=== PATIENT | male | born 1955 | race Caucasian/White ===

== ENCOUNTER → 2016-02-17 | Day surgery (SDC) | payer BC ==
--- NOTE | 2016-02-07 10:45 | HP ---
ADMISSION HISTORY AND PHYSICAL: DATE OF ADMISSION: 02/17/16 ATTENDING SURGEON: Laron Lazo MD (dictated by BRENDA Loredo) CHIEF COMPLAINT: Right inguinal hernia. HISTORY OF PRESENT ILLNESS: This is a generally healthy 60-year-old male with known right groin bulge for a number of years, which until recently had been asymptomatic. Over the last 6 months or so, the patient has noted periodic discomfort in the right groin particularly after a long day of standing and activity. He has not had any severe pain or anything to suggest incarceration or strangulation. He denies any change in GI or functions. He was seen in the office by Dr. Lazo on 01/12/16 at which time exam confirmed the presence of a reducible right groin bulge consistent with right inguinal hernia. No hernia was noted on the left. Dr. Lazo discussed with him the indications, risks, benefits, and alternatives of surgery and he understands the expected perioperative course and he would like to proceed as scheduled with laparoscopic repair of right inguinal hernia with mesh. PAST MEDICAL HISTORY: Some seasonal allergies, no other chronic or active medical problems. PAST SURGICAL HISTORY: Laparoscopic cholecystectomy with umbilical hernia repair, open appendectomy remotely. No surgical or anesthesia complications. CURRENT MEDICATIONS: 1. Nasonex 2 sprays each nostril once daily. 2. Loratadine 10 mg once daily p.r.n. 3. Glucosamine chondroitin supplement daily. 4. Multivitamin daily. DRUG ALLERGIES: None known. FAMILY HISTORY: Negative for anesthesia problems, bleeding, or clotting disorders. SOCIAL HISTORY: The patient is . He works at the [email or web address] in [place] and does a fair amount of bending and lifting. He denies use of tobacco. He drinks a couple of beers per week. He denies other drug use. REVIEW OF SYSTEMS: General: No recent constitutional symptoms or acute illnesses. His weight has been stable. HEENT: No problems reported. Cardiovascular: No chest pain, palpitations, history of hypertension, or heart murmur. Respiratory: No history of asthma or chronic cough. No shortness of breath. GI: No problems reported. Colonoscopy done within the past year reportedly normal. : No problems reported. Endocrine: No diabetes or thyroid dysfunction. PHYSICAL EXAMINATION GENERAL: Well-nourished, well-developed male, in no acute distress. VITAL SIGNS: Height 5 feet 11 inches, weight 192 pounds. Other vital signs per nursing. HEENT: Pupils equal and round, reactive. EOMs intact. No conjunctival pallor. Oropharynx: Teeth in good repair. No intraoral lesions. NECK: No lymphadenopathy, thyromegaly, or masses. LUNGS: Clear to auscultation. No wheezes. HEART: Regular rate and rhythm. No murmur noted. ABDOMEN: Soft, nontender to palpation. No palpable masses or organomegaly aside from the right inguinal hernia as noted by Dr. Lazo's exam. EXTREMITIES: No edema. GENITALIA AND RECTAL: Not done. BACK: No spinous process or CVA tenderness. NEUROLOGIC: Grossly intact. SKIN: Warm and dry. No suspicious rashes or lesions noted. IMPRESSION: Right inguinal hernia. PLAN: Laparoscopic repair, right inguinal hernia with mesh. BRENDA GUTIERREZ CC: Cain Ramesh MD * [id number]/[facility] #: [id number] MTDD
[~2016-02-17] MED LIST: Acetaminophen TAB* 325 MG PO PRN; Buffered Lidocaine 1% SYR 3ML* 3 ML/SYR SYRINGE INTRADERM ONE; Buffered Lidocaine 1% SYR 3ML* 3 ML/SYR SYRINGE ONE; Bupivacaine 0.25% EPI 200,000* 30 ML SDV ONE; Desflurane* 240 ML INH ONE; DiMENhydriNATE IV* 50 MG/ML VIAL IV PUSH PRN; DiMENhydriNATE IV* 50 MG/ML VIAL ONE; Famotidine IV* 10 MG/ML 2 ML (20 mg) ONE; HYDROmorphone INJ* 1 MG/ML CARPUJECT SYRINGE IV PRN; Midazolam* 1 MG/ML 2 ML VIAL (2 MG) ONE; Ondansetron INJ* 2 MG/ML VIAL IV PRN; PROCHLORPERAZINE INJ 5 MG/ML 2 ML VIAL IV PRN; Rocuronium* 10 MG/ML VIAL ONE; Sevoflurane* 1 BTL ONE; ceFAZolin 2 GM PREMIX (*) 2 GM/50 ML BAG IVPB ONE; fentaNYL* 50 MCG/ML 2 ML VIAL (100 MCG VIAL) ONE
[2016-02-17 14:02] VITALS: BP 119/53
--- NOTE | 2016-02-17 23:58 | OP ---
DATE OF OPERATION: 02/17/16 [facility] DATE OF : 53 SURGEON: Laron Lazo MD MEDIA STRATEGIST: Claudia Rivera NP ANESTHESIOLOGIST: Dr. Galan. ANESTHESIA: General anesthetic, local infiltration. PRE-OP DIAGNOSIS: Right inguinal hernia. POST-OP DIAGNOSIS: Right inguinal hernia. OPERATIVE PROCEDURE: Laparoscopic repair of right inguinal hernia with mesh. DESCRIPTION OF PROCEDURE: The patient was supine on the operative table. After adequate general anesthesia, compression stockings, and Jonh Hugger warmer ; the abdomen was prepped with antiseptic; and draped in a sterile fashion. Local infiltrative anesthesia was administered. A small infraumbilical incision was created and the balloon insufflator was utilized in the preperitoneal space to develop the right inguinal preperitoneal plane. Camera was inserted and additional cannulae 5 mm infraumbilical and left lower quadrant were placed through small stab wounds under direct vision and additional dissection of the peritoneum off of the pelvic tissues was accomplished. There was a medium-sized direct space hernia, which was easily dissected free. There was a sac at the internal ring that did not actually protrude through a defect in the ring, but extended up along the cord structures to the ring. This was dissected back as well. A rent in the peritoneum was noted, but there was no harm noted. A right-sided 3-dimensional medium mesh was utilized and oriented in the usual fashion. Dissolvable clips were used to secure it near the tubercle, Gus ligament, and laterally as well and 1 anterior to the direct space hernia. This created excellent coverage. Everything was in good condition. The cannula removed. Insufflation was allowed to escape. The umbilical fascia was closed with 0 Polysorb followed by 5-0 Polysorb for the skin in all cases followed by Steri- Strips. He tolerated the procedure well, was awakened, and brought to recovery in good condition. No complications. No drains. No pathologic specimen. Sponge and instruments correct. Estimated blood loss is 10 mL. CC: Laron Lazo MD; Cain Ramesh MD * [id number]/[facility] #: [id number] MTDD
== END | disposition home or self-care (01) ==
LOC: OR 07:48
PROVIDERS: ATTEND Surgery
DX: K40.90 Unilateral inguinal hernia, without obstruction or gangrene, not specified as recurrent (principal)
CPT/HCPCS: A9270-GY; C1776; C1781; J0690; J1240; J2250; J3010

== ENCOUNTER → 2018-11-01 | Day surgery (SDC) | payer BC ==
--- NOTE | 2018-10-25 12:24 | HP ---
AMENDED REPORT NOW INCLUDES DESIGNATED COSIGNER PREOPERATIVE HISTORY AND PHYSICAL: DATE OF ADMISSION: 11/01/18. DATE OF OFFICE VISIT: 10/23/18 DATE OF SCHEDULED SURGERY: 11/01/18 ATTENDING PHYSICIAN: Dr. Walker * (DICTATED BY BRENDA DURAN) CHIEF COMPLAINT: Right knee pain. HISTORY OF PRESENT ILLNESS: The patient is a 63-year-old male who has had intermittent knee pain over the last 4 years, but over the last 2 months severe medial joint line pain. He had been limping significantly and had difficulty walking and climbing on stairs. He was seen on 10/09/18 and underwent MRI of the right knee, which has shown a large medial meniscal tear. The patient has been offered knee arthroscopy and he elects to proceed with surgery, scheduled with Dr. Walker for 11/01/18. PAST MEDICAL HISTORY: Negative for any chronic conditions. PAST SURGICAL HISTORY: He has had cholecystectomy, appendectomy, and hernia repair. CURRENT MEDICATIONS: 1. Multivitamin 2. Glucosamine/chondroitin sulfate. 3. Nasonex for seasonal allergies. ALLERGIES: No known drug allergies. Seasonal allergies only. FAMILY HISTORY: His dad had a history of hypertension. SOCIAL HISTORY: Lives with his . He works part-time at the [employer]. He does not use tobacco or recreational drugs. He drinks roughly 2 alcoholic beverages per week. REVIEW OF SYSTEMS: The patient denies recent loss of consciousness, lightheadedness, dizziness. Denies shortness of breath, chest pain, palpitations. Denies gastrointestinal or genitourinary discomfort. He does have some seasonal allergies. PHYSICAL EXAMINATION GENERAL: He is alert and oriented x3, in no acute distress. Pleasant and cooperative. VITAL SIGNS: Height 71 inches, weight 194, pulse 64, BP 134/82, respirations 18. HEENT: PERRLA. NECK: Supple. LUNGS: Clear to auscultation without wheeze. HEART: Regular rate and rhythm. No murmur auscultated. ABDOMEN: Nontender. Normoactive bowel sounds x4. MUSCULOSKELETAL: Right knee reveals no open wounds or excoriations. There is a moderate effusion. He has 10 degrees to 120 degrees flexion of the knee. There is no varus or valgus instability. He has positive Apley's and Angelina. There is tenderness along the medial joint line. He has 5/5 ankle dorsiflexion and plantar flexion strength. He has full sensation and circulation distally. LAB DATA: Studies of the right knee reveal some osteoarthritis in all 3 compartments. His MRI has revealed a large medial meniscal tear. IMPRESSION: Medial meniscus tear, degenerative arthritis, right knee. PLAN: The patient has elected to proceed with right knee arthroscopy, which is scheduled with Dr. Walker 11/01/18. Risks and benefits of the procedure were fully discussed with patient at this office visit by Dr. Walker today. He will follow up in roughly 10 to 14 days postoperatively. BRENDA DURAN [id number]/[facility] #: [id number] ADAM
[~2018-11-01] MED LIST changes: -Acetaminophen TAB* 325 MG PO PRN; -Buffered Lidocaine 1% SYR 3ML* 3 ML/SYR SYRINGE INTRADERM ONE; -Buffered Lidocaine 1% SYR 3ML* 3 ML/SYR SYRINGE ONE; +Buffered Lidocaine 1% SYRIN* 1 ML/SYRINGE INTRADERM ONE; -Bupivacaine 0.25% EPI 200,000* 30 ML SDV ONE; +Bupivacaine 0.5%* 50 ML MDV VIAL ONE; -Desflurane* 240 ML INH ONE; +Dexamethasone TAB* 4 MG ONE; +Dexamethasone TAB* 4 MG PO ONE; -DiMENhydriNATE IV* 50 MG/ML VIAL ONE; +EPHEDrine (Pressors)* 50 MG/ML VIAL ONE; +EPINEPHRINE 1 MG/ML 1 ML VIAL ONE; +Famotidine IV* 10 MG/ML 2 ML (20 mg) IV ONE; -HYDROmorphone INJ* 1 MG/ML CARPUJECT SYRINGE IV PRN; +HYDROmorphone INJ1* 1 MG/ML SYRINGE IV PRN; +KETAMINE HCL* 50 MG/ML 10 ML VIAL ONE; +Ketorolac INJ* 30 MG/ML 1 ML VIAL ONE; +Labetalol IV* 5 MG/ML 20 ML VIAL ONE; +Lactated Ringers 1000 ML Bag* 1,000 ML IV SCH; +Lidocaine 2% PF * 5 ML VIAL ONE; -Midazolam* 1 MG/ML 2 ML VIAL (2 MG) ONE; +Midazolam* 1 MG/ML 5 ML VIAL (5 MG) ONE; +Naloxone* 0.4 MG/ML 1 ML VIAL IV PRN; -Ondansetron INJ* 2 MG/ML VIAL IV PRN; +Ondansetron ODT TAB* 4 MG ONE; +Ondansetron ODT TAB* 4 MG PO ONE; +PROCHLORPERAZINE INJ 5 MG/ML 2 ML VIAL ONE; +Propofol* 10 MG/ML 20 ML BTL ONE; -Rocuronium* 10 MG/ML VIAL ONE; +Scopolamine 1.5 mg* PATCH ONE; +Scopolamine 1.5 mg* PATCH TRANSDERM PRN; +Scopolamine PATCH Remove* 1 NOTE MISC PATCH OFF ONE; -Sevoflurane* 1 BTL ONE; -ceFAZolin 2 GM PREMIX (*) 2 GM/50 ML BAG IVPB ONE; +ceFAZolin 2 GM in NS PREMIX(*) 2 GM/100 ML BAG IVPB ONE; +fentaNYL* 50 MCG/ML 2 ML VIAL (100 MCG VIAL) IV PRN; +methylPREDNISolone ACETATE 80* 80 MG/ML 1 ML VIAL ONE; +oxyCODONE/Acetamin 5/325 MG* TAB ONE; +oxyCODONE/Acetamin 5/325 MG* TAB PO PRN
[2018-11-01 10:37] VITALS: BP 142/84
--- NOTE | 2018-11-01 23:03 | OP ---
OPERATIVE REPORT: DATE OF OPERATION: 11/01/18 DATE OF : 53 ATTENDING SURGEON: Myranda Walker MD. DOMINATRIX: BRENDA Cardenas. Ms. Resendez did help throughout the procedure with preparation of the leg, wound retraction, manipulation of the knee, and wound closure. ANESTHESIOLOGIST: Dr. Heredia. ANESTHESIA: General. PRE-OP DIAGNOSES: 1. Right knee medial meniscal tear. 2. Mild to moderate osteoarthritic changes. POST-OP DIAGNOSES: 1. Right knee medial meniscal tear. 2. Lateral meniscal tear. 3. Moderate to severe degenerative changes in the patellofemoral and medial compartments. OPERATIVE PROCEDURE: Right knee arthroscopy with partial medial meniscectomy, partial lateral meniscectomy, and medial compartment chondroplasty. ESTIMATED BLOOD LOSS: Less than 25 cc. COMPLICATIONS: None. SPECIMEN: None. BRIEF HISTORY/INDICATIONS: Mr. Ro is a 63-year-old gentleman who developed acute onset of mechanical symptoms, swelling and pain in the right knee approximately 3 months ago. He failed conservative treatment. The symptoms were severe and consistent with meniscal tear. We ordered an MRI to confirm meniscal tear and the medial meniscal tear was confirmed. The patient had some known arthritic changes on x-rays, but felt that this was acute mechanical symptoms and pain different from his baseline arthritis. He wished to proceed with right knee arthroscopy, partial meniscectomy, possible chondroplasty, and possible synovectomy. Informed consent was obtained from the patient. He understood the risks of surgery included but were not limited to bleeding, infection, damage to nearby structures, continued pain, need for further surgery, retear of the meniscus, progression of arthritis, anesthesia complications, stroke, heart attack, blood clot, and . He wished to proceed. INTRAOPERATIVE FINDINGS: Intraoperatively, the patient was found to have a parrot beak type tear with anterior displacement into the joint space of the medial body and posterior horn. This involved the white-red and red-red zones. He had radial tear in both the anterior and mid portion of the lateral meniscus involving white- red zone. 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 There was exposed subchondral bone and some cartilage flapping and fraying. DESCRIPTION OF PROCEDURE: Mr. Ro was identified in the preanesthesia unit. His right lower extremity was marked as the correct operative side. Informed consent was signed and placed in the chart. The patient was taken to the operating room and placed under anesthesia without complications. Right lower extremity was prepped and draped in the usual sterile fashion. Preop time -out was made to correctly identify the patient, side and site. Appropriate perioperative antibiotics were given within 1 hour of incision. A 0.5 cm anterolateral portal incision was made with a 10-blade and carried down to the capsule. The trocar was placed into the joint without difficulty. As soon as the light and water sources were turned on, there was immediate visualization of the suprapatellar pouch. A tour of the knee joint was performed. Suprapatellar pouch showed no obvious abnormalities. The patellofemoral compartment showed exposed subchondral bone in large surface of the area with grade 3 and 4 Outerbridge cartilage changes with some cartilage fraying. The medial gutters showed some small cartilage fragments, but no large loose body, no plica. Medial compartment showed grade 3 and 4 Outerbridge cartilage changes along the medial femoral condyle with cartilage flapping along the medial femoral condyle. There was a displaced large tear of the medial meniscus. This was a parrot beak type tear involving the body and posterior horn of the meniscus. ACL and PCL appeared to be intact. The knee was placed in the [id number] position. There were radial tears along the mid portion of the lateral meniscus and anterior horn. These were in the white- red zone. There was minimal degenerative changes in the lateral compartment of the joint. Under direct visualization, a medial portal incision was made with a 10-blade. A probe was introduced into the knee joint. A second tour of the knee joint was performed and no additional findings were noted. A shaver and radiofrequency ablation wand were used to smooth any cartilage flapping in a conservative fashion along the medial femoral condyle. Next, a straight biter and shaver were used to perform partial medial meniscectomy. The displaced parrot beak type tear was sharply excised. A smooth border of the medial meniscus was obtained in the white-red and red-red zones. Further probing of the medial meniscus showed no additional tear. Radiofrequency ablation wand was used to further smooth the edge of the meniscus. The knee was placed in the [id number] position. Straight biter and shaver were used to perform partial lateral meniscectomy. The two radial tears were carefully excised. The smooth border of the lateral meniscus was obtained. Further probing of the lateral meniscus showed no additional tear. The knee was copiously irrigated with sterile saline. All instruments were removed. Incisions were closed with 3-0 nylon suture. Intraarticular injection with 80 mg of Depo-Medrol and 6 cc of 0.5% bupivacaine was placed in the knee joint. Incisions were covered with Xeroform, 4x4s, and Webril. An Antoine wrap and cold pack were placed over this. The patient's anesthesia was reversed without difficulty. He was taken to the PACU in stable condition. The intended weightbearing will be weightbearing as tolerated. Intended DVT prophylaxis will be aspirin daily for 2 weeks. [id number]/[facility] #: [id number] [facility]
== END | disposition home or self-care (01) ==
LOC: OR 05:39
PROVIDERS: ATTEND Orthopaedic Surgery Adult Reconstructive Orthopaedic Surgery
DX: S83.241A Other tear of medial meniscus, current injury, right knee, initial encounter (principal); S83.281A Other tear of lateral meniscus, current injury, right knee, initial encounter; X58.XXXA Exposure to other specified factors, initial encounter; Y92.9 Unspecified place or not applicable; M17.11 Unilateral primary osteoarthritis, right knee
CPT/HCPCS: A9270-GY; J0690; J0780; J1040; J1885; J2250; J2704; J3010; J3490; J8540